=== PATIENT | male | born 1985 | race Two or more races ===

== ENCOUNTER 2017-02-28 23:19 | Emergency (ER) | payer SELFPAY ==
[2017-02-28 23:26] VITALS: BP 146/89; PULSE 100; TEMP 98.2; BMI 43.8
--- NOTE | 2017-02-28 23:47 | PDOC ---
History of Present Illness - General Chief Complaint: Injury Stated Complaint: CUT LEFT THUMB ON BEER BOTTLE Time Seen by Provider: 02/28/17 23:44 History Source: Patient Exam Limitations: No Limitations - History of Present Illness Initial Comments: 02/28/17 23:47 This is a 31-year-old male who comes in for evaluation of a thumb laceration. Patient cut his thumb while trying to open up a beer bottle with the bottom of a tin can. The tin can slipped lacerating his finger. Patient's last tetanus was a year ago. Patient otherwise is healthy. PAST MEDICAL HISTORY: no significant history PAST SURGICAL HISTORY: no significant history FAMILY HISTORY: no pertinant history SOCIAL HISTORY: Pt lives with family and is employed. MEDICATIONS: reviewed ALLERGIES: As per nursing notes Review of Systems General: No fevers or chills, no weakness, no weight loss HEENT: No change in vision. No sore throat,. No ear pain CardioVascular: No chest pain or shortness of breath Respiratory:No cough, or wheezing. Gastrointestinal: no nausea, vomitting, diarrhea or constipation, No rectal bleeding Genitourinary: No dysuria, hematuria, or frequency Musculoskeletal: Laceration left thumb Neurologic: No headache, vertigo, dizziness or loss of consciousness Psychiatric: nor depression Skin: No rashes or easy bruising Endocrine: no increased thirst or abnormal weight change Allergic: no skin or latex allergy All other systems reviewed and normal GENERAL: The patient is awake, alert, and fully oriented, in no acute distress. HEAD: Normal with no signs of trauma. EYES: Pupils equal, round and reactive to light, extraocular movements intact, sclera anicteric, conjunctiva clear. EXTREMITIES: Normal range of motion, no edema. Left thumb: There is a laceration approximately 1 and1/2 cm total length on the palmar surface of the thumb. Laceration is over the DIP joint area. Sensation is intact distally. The area was anesthetized and a tourniquet was applied and laceration explored in a bloodless field. No visible tendon injury was seen. However it was difficult to visualize the tendon as there was a lot of fat in the wound and I had to remove some of the fat. However in strength testing patient had full strength on flexion and extension over the DIP joint. NEUROLOGICAL: Normal speech, normal gait. PSYCH: Normal mood, normal affect. SKIN: Warm, Dry, normal turgor, no rashes or lesions noted. Procedure note laceration repair Laceration was anesthetized via local infiltration with 1% lidocaine no epi Laceration was closed with a total of 6 sutures of 4-0 Ethilon Bacitracin and a sterile dressing were applied patient tolerated well. Past History - Past Medical History Allergies/Adverse Reactions: Allergies Allergy/AdvReac Type Severity Reaction Status Date / Time No Known Allergies Allergy Verified 02/28/17 23:21 Home Medications: Ambulatory Orders NK [No Known Home Medication] 02/28/17 Other medical history: DENIES - Psycho/Social/Smoking Cessation Hx Anxiety: No Suicidal Ideation: No Smoking History: Never smoked Have you smoked in the past 12 months: No Information on smoking cessation initiated: No Hx Alcohol Use: Yes (OCCAS.) Drug/Substance Use Hx: No Substance Use Type: None *Physical Exam - Vital Signs Last Vital Signs Temp Pulse Resp BP Pulse Ox 98.2 F 100 H 18 146/89 96 02/28/17 23:22 02/28/17 23:22 02/28/17 23:22 02/28/17 23:22 02/28/17 23:22 *DC/Admit/Observation/Transfer Diagnosis at time of Disposition: Laceration of left thumb Qualifiers: Encounter type: initial encounter Damage to nail status: without damage Foreign body presence: without foreign body Qualified Code(s): S61.012A - Laceration without foreign body of left thumb without damage to nail, initial encounter - Discharge Dispostion Disposition: HOME Condition at time of disposition: Stable Admit: No - Patient Instructions Printed Discharge Instructions: DI for Laceration Repair -- Simple Additional Instructions: Tylenol or Motrin as needed for pain. Suture removal in 10 days you can return to the ER or see your primary care doctor for suture removal Clean the laceration twice a day with some peroxide and reapply bacitracin and a Band-Aid for the next 3-4 days. Keep the laceration dry for the next 48 hours After that if you get it wet make sure you don't soak it but dried and put a clean Band-Aid on it. Return to the emergency department immediately with ANY new, persistent or worsening symptoms. Continue any medications as previously prescribed by your physician. You should follow up with your primary doctor as soon as possible regarding today's emergency department visit. . Please make sure your doctor reviews the results of your emergency evaluation. Thank you for coming to the Emergency Department today for your care. It was a pleasure to see you today. Please note that your evaluation is INCOMPLETE until you follow-up with your doctor.
== END 2017-02-28 23:49 | disposition home or self-care (01) ==
LOC: FER 23:19
PROC: 0HQGXZZ Repair Left Hand Skin, External Approach (ICD-10-PCS; principal; 2017-02-28)
DX: S61.012A Laceration without foreign body of left thumb without damage to nail, initial encounter (principal); W26.8XXA Contact with other sharp object(s), not elsewhere classified, initial encounter; Y93.89 Activity, other specified; Y92.9 Unspecified place or not applicable
CPT/HCPCS: 99281-25